=== PATIENT | female | born 1975 | race Caucasian/White ===

== ENCOUNTER 2018-04-02 22:42 | Emergency (ER) | payer MEDICAID ==
[~2018-04-02] VITALS: Ht 160 cm; Wt 70.5 kg
[2018-04-03] MEDS ORDERED: DIPHENHYDRAMINE 50MG CAPSULE PO ONE (00:15)
[2018-04-03] MEDS ORDERED: KETOROLAC 15MG/ML VIAL IV ONE (00:15)
[2018-04-03] MEDS ORDERED: METOCLOPRAMIDE HCL 10MG TABLET PO ONE (00:15)
[2018-04-03] MEDS ORDERED: KETOROLAC 15MG/ML VIAL IM ONE (01:30)
[2018-04-03 06:26] VITALS: BP 110/66
== END 2018-04-03 06:25 | disposition home or self-care (01) ==
LOC: ER 23:28
DX: R51 Headache (principal); R11.0 Nausea
CPT/HCPCS: 70450; 71045; 93005; 96372; 99284; 99406; J1885; J8597; Q0163